=== PATIENT | male | born 1985 | race African-American/Black ===

== ENCOUNTER 2018-10-05 01:39 | Inpatient (IN) | payer OTHER ==
[~2018-10-05] VITALS: Ht 180.3 cm; Wt 124.7 kg
[2018-10-05] VITALS (8 sets, daily range): BP systolic 117–139; BP diastolic 73–86
[2018-10-05 02:37] LABS: BASOPHILS % 0.8 % (0.0-2.0); EOSINOPHILS % 1.2 % (0.0-5.0); HEMATOCRIT. 42.3 % (42.0-52.0); HEMOGLOBIN. 14.1 g/dL (14.0-18.0); MEAN CORPUSCULAR HEMOGLOBIN 27.8 pg (28.0-32.0); MEAN CORPUSCULAR VOLUME 83.3 fL (80.0-94.0); MEAN PLATELET VOLUME 8.3 fl (7.4-10.4); PLATELET 277 x1000/uL (130-400); RED BLOOD CELL COUNT 5.08 mill/uL (4.7-6.1)
[2018-10-05 02:42] LABS: CHLORIDE 108 mEq/L (98-107)
[2018-10-05 05:05] LABS: *AMPHETAMINES SCREEN URINE NEGATIVE (NEGATIVE); *BARBITURATES SCREEN URINE NEGATIVE (NEGATIVE); *BENZODIAZEPINES SCREEN URINE NEGATIVE (NEGATIVE); *COCAINE SCREEN URINE NEGATIVE (NEGATIVE)
[2018-10-05 05:06] LABS: CANNABINOID URINE SCREEN NEGATIVE (NEGATIVE); METHADONE URINE SCREEN NEGATIVE (NEGATIVE); OPIATES URINE SCREEN NEGATIVE (NEGATIVE); PHENCYCLIDINE URINE SCREEN NEGATIVE (NEGATIVE)
[2018-10-05] MEDS ORDERED: DILTIAZEM HCL 5MG/ML 5ML VIAL IV PRN (11:30)
[2018-10-05] MEDS ORDERED: POTASSIUM CHLORIDE 20MEQ TABLET SR PO SCH (11:30)
[2018-10-05] MEDS: METOPROLOL TARTRATE 25MG TABLET PO SCH ×2 (12:50→20:35)
[2018-10-05] MEDS: ENOXAPARIN 120MG/0.8ML SYR SUBCUT SCH ×2 (12:52→23:30)
[2018-10-05] MEDS ORDERED: PNEUMOCOCCAL 23-VAL P-SAC VAC 0.5 ML IM ONE (14:00)
[2018-10-05 15:16] LABS: PROTHROMBIN TIME 10.3 sec (9.6-11.0)
[2018-10-06] VITALS (11 sets, daily range): BP systolic 114–151; BP diastolic 62–102
[2018-10-06] MEDS: ENOXAPARIN 120MG/0.8ML SYR SUBCUT SCH (08:30)
[2018-10-06] MEDS: METOPROLOL TARTRATE 25MG TABLET PO SCH (08:30)
[2018-10-06] MEDS ORDERED: REGADENOSON 0.4 MG/5 ML IV NR (09:00)
[2018-10-06] MEDS ORDERED: HEPARIN SODIUM 1,000 UNIT/1ML VIAL IV ONE (09:36)
[2018-10-06] MEDS ORDERED: NITROGLYCERIN 50MCG/ML 10ML VIAL (CATH LAB) IV ONE (09:36)
[2018-10-06] MEDS ORDERED: NICARDIPINE 100MCG/ML 10ML VIAL (CATH LAB) IV ONE (09:36)
[2018-10-06] MEDS ORDERED: REGADENOSON 0.4 MG/5 ML IV ONE (10:20)
[2018-10-06 11:38] LABS: HEMATOCRIT 43.3 % (42.0-52.0); HEMOGLOBIN 14.5 g/dL (14.0-18.0); MEAN CORPUSCULAR HEMOGLOBIN 27.8 pg (28.0-32.0); MEAN CORPUSCULAR VOLUME 83.4 fL (80.0-94.0); PLATELET 278 x1000/uL (130-400)
[2018-10-06 11:42] LABS: CHLORIDE 109 mEq/L (98-107)
[2018-10-06] MEDS ORDERED: IODIXANOL 320MG/ML 100 ML BOTTLE IV ONE (12:15)
[2018-10-06] MEDS ORDERED: FENTANYL CITRATE/PF 50MCG/ML 2ML VIAL ONE (12:15)
[2018-10-06] MEDS ORDERED: MIDAZOLAM HCL 2 MG/2 ML VIAL ONE (12:15)
[2018-10-06] MEDS ORDERED: LIDOCAINE HCL 1% 20ML VIAL (Pyxis) INJ ONE (12:15)
[2018-10-06] MEDS ORDERED: ASPIRIN/SOD BICARB/CITRIC ACID 324MG TAB EFF ONE (12:16)
[2018-10-06] MEDS ORDERED: ATROPINE SULFATE 1MG/10ML SYR IV PRN (13:15)
[2018-10-06] MEDS ORDERED: MORPHINE SULFATE 2 MG/ML CPJ (NOT FOR IM USE) IV PRN (13:15)
[2018-10-06] MEDS ORDERED: ACETAMINOPHEN 325MG TABLET PO PRN (13:15)
[2018-10-06] MEDS ORDERED: ONDANSETRON HCL 4MG/2ML INJ IV PRN (13:15)
[2018-10-06] MEDS ORDERED: SODIUM CHLORIDE 0.45% 1,000 ML IV ONE (13:15)
== END 2018-10-06 18:33 | disposition home or self-care (01) | DRG 287 ==
LOC: ER 01:39 → 6WST 04:30 → EDBEDREQ 04:33 → EDBEDREQTM 04:33 → ENRESERV 07:11 → 3WST 16:39
PROVIDERS: ADMIT Internal Medicine; ATTEND Internal Medicine
PROC: 4A023N7 Measurement of Cardiac Sampling and Pressure, Left Heart, Percutaneous Approach (ICD-10-PCS; principal; 2018-10-06)
PROC: B2111ZZ Fluoroscopy of Multiple Coronary Arteries using Low Osmolar Contrast (ICD-10-PCS; 2018-10-06)
PROC: B2151ZZ Fluoroscopy of Left Heart using Low Osmolar Contrast (ICD-10-PCS; 2018-10-06)
DX: I48.0 Paroxysmal atrial fibrillation (principal); R07.89 Other chest pain; E66.9 Obesity, unspecified; E78.1 Pure hyperglyceridemia; I10 Essential (primary) hypertension; I25.9 Chronic ischemic heart disease, unspecified; Z82.49 Family history of ischemic heart disease and other diseases of the circulatory system; Z68.38 Body mass index [BMI] 38.0-38.9, adult; Z88.0 Allergy status to penicillin
CPT/HCPCS: 36415; 71045; 78452; 80048; 80061; 80305; 83036; 83735; 83880; 84443; 84484; 85027; 90732; 93005; 93017; 93306; 93458; 99285; A9500; C1769; C1887; C1893; J1644; J1650; J2250; J2785; J3010; J3490; J7040; Q9967